=== PATIENT | male | born 2000 | race Caucasian/White ===

== ENCOUNTER 2025-07-11 18:31 | Emergency (ER) | payer OTHER, SELFPAY ==
--- OUTSIDE RECORDS SUMMARY | 1999-08-24 09:51 | XMS_ITS | Encounter Summary ---
Author Organization [facility] Address [address] [place] [address] Care Team Providers Care Motor Adjuster Name Role Phone Unavailable Primary Care Provider Unavailabl e Encounter Details Date Type Department Care Team (Late st Contact Info) Description 08/24/1999 9:51 EDT Hospital Encounter [address] [address] Billy Batista MD [address] [place] [address] Social History Tobacco Use Types Packs/Day Years Used Date Smoking Tobacco: Every Day Cigarettes Smokeless Tobacco: Former Alcohol Use Standard Drinks/Week Comments No 0 (1 standard drink = 0.6 oz pur e alcohol) PHQ-2 Answer Date Recorded PHQ-2 SUBTOTAL 0 10/27/2023 Interpersonal Safety Answer Date Record ed Physically Hurt Never 06/05/2020 Verbally Threaten Not on file 06/05/2020 Sex and Gender Information Value Date Recorded Sex Assigned at Not on file Legal Sex Male 18:23 EST Gender Identity Male 01/01/2024 10:08 EST Sexual Orientation Not on file documented as of this encounter Plan of Treatment Not on file documented as of this encounter Visit Diagnoses Not on filedocumented in this encounter Additional Health Concerns Infection Onset Date Last Indicated Resolved Time R/O COVID-19 10/27/2023 10/27/2023 10/27/2023 8:50 EST documented as of this encounter
--- OUTSIDE RECORDS SUMMARY | 2004-03-13 08:13 | XMS_ITS | Encounter Summary ---
Author Organization [facility] Address [address] [place] [address] Care Team Providers Care Automotive Service Writer Name Role Phone Unavailable Primary Care Provider Unavailabl e Encounter Details Date Type Department Care Team (Late st Contact Info) Description 03/13/2004 8:13 EDT Hospital Encounter [address] [address] [place] Ramires MD [address] [place] [address], [address] [place] [id number] Social History Tobacco Use Types Packs/Day Years [...]
[2025-07-11 18:40] VITALS: BP 133/81; PULSE 58; RESP 16; TEMP 36.9; O2SAT 98; BMI 23.9
--- NOTE | 2025-07-11 18:57 | ED.GENADULT ---
HPI - General Adult General Chief complaint: Skin/Abscess/Foreign Body Stated complaint: ?Infected tattoo Time Seen by Provider: 07/11/25 18:54 Source: patient Mode of arrival: ambulatory Limitations: no limitations History of Present Illness ED Provider: Blair Deleon HPI narrative: 25 yold male presents to the ED for infected tattoo on left wrist. Patient states his cousin was doing a tattoo for the first time on his wrist and she cut to deep. 5 days later there is redness with weeping discharge. patient uptodtae with tetanus. Related Data Previous Rx's ?Medication ?Instructions ?Recorded cephalexin 500 mg capsule 500 mg PO QID 7 days #28 caps 07/11/25 doxycycline hyclate 100 mg capsule 100 mg PO BID 7 days #14 caps 07/11/25 naproxen 500 mg tablet 500 mg PO BID PRN pain #14 tabs 07/11/25 Allergies Allergy/AdvReac Type Severity Reaction Status Date / Time carbamazepine (From Tegretol) AdvReac Seizure Verified 07/11/25 18:41 sertraline (From Zoloft) AdvReac Seizure Verified 07/11/25 18:41 Review of Systems Review of Systems: left wirst tatoo infection Yes all other systems are reviewed and are negative PMFSH Social History Social History Advance Directives: No Advance Directives Information Provided: No Physical Exam ED Vital Signs: Vital Signs - 24 hr 07/11/25 18:40 Temperature 98.5 F Pulse Rate 58 Respiratory Rate 16 Blood Pressure 133/81 Pulse Oximetry 98 Oxygen Delivery Method Room Air BMI result Body Mass Index 23.9 Const General: cooperative, healthy appearing, comfortable, no acute distress, well developed, alert and Physically active Orientation/consciousness: patient oriented x3 HENMT Head: Yes normal to inspection, Yes No palpable skull fracture present, Yes normocephalic, Yes atraumatic and No abrasion Eyes General: appearance normal, both eyes and all related structures Neck Neck: Yes normal visual inspection, Yes full ROM, Yes no lymphadenopathy, Yes no meningeal signs, Yes trachea midline, Yes supple, No anterior neck swelling and No lymphadenopathy Chest Chest palpation & inspection: normal inspection of the chest and normal palpation of entire chest wall Resp Effort & Inspection: normal respiratory effort and able to speak in complete sentences Auscultation: clear to auscultation bilaterally Cardio Jugular venous distension: no JVD Heart sounds: S1 normal heart sound present and S2 normal heart sound present GI Inspection: Yes normal to inspection Palpation (GI): Soft to palpation, not firm, nontender, no guarding and not rigid General: Yes no CVA tenderness Back/Spine/Pelvis Back: no CVA tenderness and No back tenderness Skin Other: tattooo infected General skin exam: no rashes or lesions noted, elasticity normal and turgor normal Neuro General: patient oriented x3, gait normal, tone normal, moves all extremities, Normal light touch and pain sensation, no meningeal signs, no focal motor deficits and CN's II-XI intact bilaterally Extrem General: Yes normal to inspection, Yes full ROM and Yes capillary refill normal Hand/finger images:  1. positive for infected tattoo. there is surrounding erythema, with weeping discharge from openings. rest of extremity is normal. negative for stiffness. motor, neuro, and vascular exam is intact. Medications Administered Discontinued Medications Generic Name Dose Route Start Last Admin Trade Name Freq PRN Reason Stop Dose Admin Cephalexin HCl 500 mg 07/11/25 18:55 07/11/25 19:12 Cephalexin 500 Mg Capsule PO 07/11/25 18:56 500 mg ONCE ONE Administration Doxycycline Monohydrate 100 mg 07/11/25 18:55 07/11/25 19:12 Doxycycline Monohydrate 100 Mg Capsule PO 07/11/25 18:56 100 mg ONCE ONE Administration Medical Decision Making Medical Decision Making [facility] Narrative: RME: 25 yold male presents to the ED left wrist pain with redness and and drainage on area of new tattoo that was done by his cousin who was doing a tattoo for the first time. Patient states causing went to deep. On exam, on inspection of tattoo positive for redness and openings in tattoo that is indurated with yellow weeping. Negative for red streaks going down arm, swelling, bluish black discloration, chest pain, fever, chills, or any other concerning symptoms. Patient given a 1st dose on antibiotics. Patient explained worrisome signs an dinformed to retun to the ED imeidatley. Not suspecting DVT, lymphangitis, osteomyelitis, necrotizign fascitits, or any other life threatening etiology. Differential Diagnosis Differential Diagnoses: The differential diagnosis associated with the presentation includes (Cellulitis, lymphangitis, osteomyelitis) Admission/Observation Consideration of admission/observation: Escalation of care including admission/observation considered Independent Historian Clinical information obtained from an independent historian. History obtained from or confirmed by: Other (patient) Prescription Management I considered prescription management with: Pain Medication and Antibiotic Discharge Plan Discharge Clinical Impression: Cellulitis Patient Disposition: Home, Self-Care Instructions: Cellulitis (ED), Warm Compress or Soak (ED) Additional Instructions: You have a local skin infection on your new tattoo. You will need antibiotics and pain medication. Return to the ED immediately for worsening redness, pus discharge, foul odor, stiffness inability to move wrist, red streaks going down the arm, swelling, chest pain, shortness of breath, or any other concerning symptoms. Prescriptions: New cephalexin 500 mg capsule 500 mg PO QID 7 Days Qty: 28 0RF doxycycline hyclate 100 mg capsule 100 mg PO BID 7 Days Qty: 14 0RF naproxen 500 mg tablet 500 mg PO BID PRN (Reason: pain) Qty: 14 0RF Stand Alone Forms: Work/School Release Interventions: ED Discharge Assessment Last Done: 07/11/25 19:30 Discharge Date/Time: 07/11/25 19:36 Print Language: Greek
[2025-07-11 19:30] VITALS: BP 133/81; PULSE 58; RESP 16; TEMP 36.9; O2SAT 98
--- OUTSIDE RECORDS SUMMARY | 2025-07-11 19:37 | XMS_ITS | Clinical Summary ---
Author Organization [facility] Address [address] [place] [address] Care Team Providers Care Terminal Make Up Operator Name Role Phone Wilfrido Mueller MD Primary Care Provi ton Allergies Active Allergy Reactions Criticality Noted Date Comments Carbamazepine Other (See Comments) High 04/20/2022 Seizure activity Sertraline Other (See Comments) High 04/20/2022 seizure Medications buprenorphine-n aloxone 8-[address] under the tongue daily. Active BABY ASPIRIN ORAL Take 81 mg by mouth daily. Active buprenorphine HCL [address] 1 tablet under the tongue 4 (four) times daily. Active guanFACINE 1 mg Oral ER tablet Take 1 tablet by mouth at bedtime. 06/27/2024 Active lurasidone 60 mg Oral tablet Take 1 tablet by mouth daily. 06/27/2024 Active methylphenidate HCl 18 MG Oral ER tablet Take 1 tablet by mouth every morning. 06/26/2024 Active magnesium oxide 400 mg Oral tablet Take 0.5 tablets by mouth at bedtime. 06/27/2024 Active Active Problems Problem Noted Date Diagnosed Date Lung nodule 07/07/2025 Migraine without aura, not i ntractable, without status migrainosus 07/13/2024 Nausea & vomiting 02/02/2024 Upper respiratory tract infection, unspecified t ype 09/24/2023 Encounters Date Type Department Care Team Description 06/03/2025 7:11 PM EDT - 06/03/2025 7:34 PM EDT Emergency [facility] Emergency Department [address] [place] [address] Hordeolum externum of right upper eyelid (Primary Dx) Discharge Disposition: Home or Self Care 04/26/2025 9:28 AM EDT - 04/26/2025 10:08 AM EDT Emergency [facility] Emergency Department [address] [place] [address] Thomas Delgado MD Cellulitis and abscess of upper extremity (Primary Dx) Discharge Disposition: ED ONLY - Home 04/26/2025 Travel from Last 3 Months Immunizations Immunization Administration Dates Next Due PFIZER SARS-COV-2 VACC (STACY CAP) (ADULT/ADOL) 0 06/13/2021 Family History Medical History Relation Comments Heart disease Brother Diabetes Father Heart disease Father Dementia Maternal Grandfather Arthritis Maternal Grandmother Arthritis Mother Kidney disease Mother Liver disease Mother Thyroid disease Mother Aortic aneurysm Paternal Grandfather Breast cancer Paternal Grandmother Relation Status Comments Brother Father Alive Maternal Grandfather Alive Maternal Grandmother Alive Mother Alive Paternal Grandfather (Age 78) Paternal Grandmother Alive Social History Tobacco Use Types Packs/Day Years Used Date Smoking Tobacco: Every Day Cigarettes Alcohol Use Standard Drinks/Week Comments Yes 0 (1 standard drink = 0.6 oz pur e alcohol) rarely PHQ-2 Answer Date Recorded PHQ-2 Score 1 09/24/2023 Sex and Gender Information Value Date Recorded Sex Assigned at Not on file Legal Sex Male 11:35 AM EDT Gender Identity Not on file Sexual Orientation Not on file Last Filed Vital Signs Vital Sign Reading Time Taken Comments Blood Pressure 150/84 06/03/2025 7:11 PM EDT Pulse 64 06/03/2025 7:11 PM EDT Temperature 36.5 C (97.7 F) 06/03/2025 7:11 PM EDT Respiratory Rate 14 06/03/2025 7:11 PM EDT Oxygen Saturation 100% 06/03/2025 7:11 PM EDT Inhaled Oxygen Concentration - - Weight 68 kg (150 lb) 06/03/2025 7:11 PM EDT Height 172.7 cm (5' 8 ) 06/03/2025 7:11 PM EDT Body Mass Index 22.81 06/03/2025 7:11 PM EDT Plan of Treatment Health Maintenance Due Date Last Done Comments Hepatitis B Vaccines (1 of 3 - 19+ 3-dose series) 2017 Pneumococcal 0-49 (1 of 2 - PCV) 2017 DTap / Tdap / Td Vaccines (1 - Tdap) 2019 Health Care Proxy Review 2019 Depression Screening (Once per Calendar Year) 2024 09/24/2023, 09/24/2023, 09/24/2023, Additional history exists COVID-19 Vaccine (2 - 2024- season) 2025 06/13/2021 INFLUENZA VACCINE (#1) 2025 Diabetes Screening 11/16/2025 11/16/2024, 0 11/16/2024, 02/02/2024, Additional history exists Zoster Vaccines (1 of 2) 2048 HIB Vaccines Aged Out No longer eligi ble based on patient's age to complete this topic HPV Vaccine Aged Out No longer eligi ble based on patient's age to complete this topic Hepatitis A Vaccine Aged Out No longe r eligible based on patient's age to complete this topic IPV Vaccines Aged Out No longer eligi ble based on patient's age to complete this topic Meningococcal ACWY Vaccines Aged Out No longer eligible based on patient's age to complete this topic Meningococcal B Vaccines Aged Out No longer eligible based on patient's age to complete this topic RRH RSV Vaccine Infants Aged Out No l onger eligible based on patient's age to complete this topic Rotavirus Vaccines Aged Out No longer eligible based on patient's age to complete this topic Goals Goal Patient Goal Type Associated Problems Recent Progress Patient-Stated? Author Inpatient Post-Discharge Follow Up General No Faviola Cain LPN Note: If you are hospitalized in the future, please complete a follow-up visit with your PCP within 7 days of discharge from the hospital. Procedures Procedure Name Priority Date/Time Associated Diagnosis Comments [facility] PROC INCISION AND DRAINAGE Routine 04/26/2025 10:02 AM EDT HEMOGLOBIN A1C Routine 11/16/2024 1:16 PM EST Other [facility] (current) drug therapy from Last 3 Months or Most Recently Relevant to Health Maintenance Results * I and D (04/26/2025 10:02 AM EDT) Narrative Thomas Delgado MD - 04/26/2025 10:02 AM EDT Thomas Delgado MD 04/26/2025 10:04 AM I and D Date/Time: 04/26/2025 10:02 AM Performed by: Thomas Delgado MD Authorized by: Thomas Delgado MD Consent obtained? Verbal consent obtained Consent given by: patient Risks and benefits: risks, benefits and alternatives were discussed Time Out: Immediately prior to the procedure a time out was performedType: abscess Body area: upper extremity Location details: left arm Local Anesthetic: lidocaine 2% with epinephrine Anesthetic total: 4 mL Scalpel size: 15 Incision type: single straight Complexity: simple Drainage: purulent and serosanguinous Drainage amount: copious Wound treatment: wound left open Packing material: 1/2 in gauze Patient tolerance: patient tolerated the procedure well with no immediate complications Thomas Delgado MD PROCEDURE/MINOR SURGI MATEUSZ PERFORMABLES Final Result * Hemoglobin A1C (11/16/2024 1:16 PM EST) EAVERAGE GLUCOSE 100 80 - 137 mg/dL LABS HEMOGLOBIN A1C 5.1 4.2 - 6.3 % LABS Comment: Per ADA 2018 Guidelines, HbA1c values should be interpreted as follows: Normal: less than 5.7% Prediabetes: 5.7% - 6.4% Diabetes: greater than 6.4% Samples containing >7% HbF may yield lower than expected HbA1c results. Additional testing not affected by HbF can be requested if clinically indicated. Contact [phone] for more information. Blood 11/16/2024 1:16 PM EST 11/16/2024 1:16 PM EST Narrative LABS - 11/16/2024 1:16 PM EST Release to patient->Immediate Lab Collect I have provided this patient pre-test counseling for HIV testing and they have consented to a screening test to be drawn today:->Yes Lab Collect us Vielka Padilla DO LAB BLOOD ORDERABLES Final Res ult [facility] [address] [place] [address] from Last 3 Months or Most Recently Relevant to Health Maintenance Insurance [employer] Advance Directives For more information, please contact: [phone] * Full Code (Latest Code Status on File) Date Activated Date Inactivated Comments 02/01/2024 7:20 PM Care Teams Terminal Make Up Operator Relationship Specialty Start Date End Date Wilfrido Mueller MD [address] [facility] [address] [place] [address] PCP - General Internal Medicine 06/03/25
--- OUTSIDE RECORDS SUMMARY | 2025-07-11 19:37 | XMS_ITS | Encounter Summary ---
Author Organization [facility] Address [address] [place] [address] Care Team Providers Care Pyridine Operator Name Role Phone None, Provider IN CLASSROOM TUTOR Primary Care Provider Vahid Baird MD Primary Care Provider [phone] [facility] Primary Care Provider Reason for Visit * Reason Onset Date Comments Follow-up 01/07/2024 Encounter Details Date Type Department Care Team (Late st Contact Info) Description 01/07/2024 Telephone [facility] Cardiology [address] [place] [address] Laine Mcdonald NP [address] [address] Follow-up Social History Tobacco Use Types Packs/Day Years [...] on file documented as of this encounter Functional Status * Are you deaf or do you have serious difficulty hearing? Answer Date of Assessment Author No 11/20/2023 5:44 Jj Holden, RN * Are you blind or do you have serious difficulty seeing, even when wearing glasses? Answer Date of Assessment Author No 09/28/2017 16:44 Chino Mora * Do you have serious difficulty walking or climbing stairs? (5 years old or older) Answer Date of Assessment Author No 09/28/2017 16:44 Chino Mora men * Do you have difficulty dressing or bathing? (5 years old or older) Answer Date of Assessment Author No 09/28/2017 16:44 Chino Mora * Because of a physical, mental, or emotional condition, do you have difficulty doing errands alone such as visiting a doctor's office or shopping? (15 years old or older) Answer Date of Assessment Author No 09/28/2017 16:44 Chino Mora documented as of this encounter Mental Status * Because of a physical, mental, or emotional condition, do you have serious difficulty concentrating, remembering, or making decisions? (5 years old or older) Answer Entry Date Author No 09/28/2017 16:44 Chino Mora documented in this encounter Miscellaneous Notes * Telephone Encounter - Carmel Sharp LPN - 02/07/2024 0923 EDT Appeal still pending. * Telephone Encounter - Carmel Sharp LPN - 02/03/2024 1449 EDT Appeal still pending * Telephone Encounter - Carmel Sharp LPN - 01/27/2024 1437 EDT Appeal still pending * Telephone Encounter - Carmel Sharp LPN - 01/15/2024 1451 EDT Appeal faxed * Telephone Encounter - Carmel Sharp LPN - 01/15/2024 1054 EDT Auth denied again, they would like patient to have ETT. Is this something you would like to order or would you like me to appeal? * Telephone Encounter - Carmel Sharp LPN - 01/15/2024 0918 EDT Auth still pending * Telephone Encounter - Carmel Sharp LPN - 01/13/2024 1518 EDT New auth submitted * Telephone Encounter - Laine Mcdonald NP - 01/07/2024 1510 EST Boone called back at 15:00. He states he has a very difficult time performing exercise given significant dyspnea with activity like walking. He becomes diaphoretic and anxious with the changes in his breathing - he does not feel confident that he can perform an ETT. He was updated on the results of his holter monitor showing an elevation in his HR in morning hours(02:05). He states he has not used drugs recreationally outside of cannabis in many months. Also stated he felt acutely unwell during his holter monitor. I have updated him on consult with Dr. Patel taking place on March 18, 2024 at 0900. Updated that I will need to see outcome of discussion with his insurance for ischemic work up. Laine Mcdonald NP * Telephone Encounter - Laine Mcdonald NP - 01/07/2024 1442 EST Called home number at 14:40 and asked to speak with Boone. He is not presently at home, message for him to call me back were left with his mother. Pt has been declined CTA thus far. I would like to speak with him regarding his symptoms and whether or not he feels he would be able to walk on a treadmill as an alternative diagnostic study. I will ask our MELT SUPERINTENDANT Carmel for her assistance appealing to the insurance company for this to be approved. Laine Mcdonald IN CLASSROOM TUTOR documented in this encounter Plan of Treatment Not on file documented as of this encounter Visit Diagnoses Not on filedocumented in this encounter Care Teams Pyridine Operator Relationship Specialty Start Date End Date None, Provider, IN CLASSROOM TUTOR PCP - General 09/28/17 02/11/24 Vahid Velásquez MD [address] [place] [id number] PCP - General Clinical Cardiac Electrophysiology 02/12/24 02/23/[address] [address] PCP - General Family Medicine - Primary Care 02/24/24 documented as of this encounter
--- OUTSIDE RECORDS SUMMARY | 2025-07-11 19:37 | XMS_ITS | Clinical Summary ---
Author Organization [facility] Address [address] [place] [address] Care Team Providers Care Automatic Lathe Tender Name Role Phone [facility] Primary Care Provider Allergies Active Allergy Reactions Criticality Noted Date Comments Carbamazepine Hives 07/02/2012 Sertraline 09/28/2017 Pt states he had seizures. Medications ondansetron (ZOFRAN-ODT) 4 mg disintegrating tablet Take 1 Tablet by mouth every 6 hours as needed for Nausea. 10 Tablet 11/20/19 24 Active buprenorphine HCL (SUBUTEX) [address] 4 Tablets under the tongue daily. Active metoprolol TARtrate (LOPRESSOR) 25 mg tablet Take 1 Tablet by mouth Once for 1 dose. Take 3 hours prior to coronary CT. 1 Tablet 01/01/20 24 Active Additional Information Patient not taking.Reported on 02/24/2024 Active Problems Problem Noted Date Diagnosed Date History of echocardiogram 06/05/2024 Overview (06/05/2024): Echocardiogram: April 07, 2024 Left Ventricle: The left ventricular cavity was normal in size. Left ventricular systolic function was normal with an ejection fraction of 60-65%. Left ventricular diastolic parameters were normal. Left ventricular wall thickness was normal. Left ventricular wall motion was normal; there were no regional wall motion abnormalities. Right Ventricle: The right ventricular cavity was normal in size. Right ventricular systolic function was normal. Normal valvular function. History of exercise stress test 06/05/2024 Overview (06/05/2024): ETT: February 24, 2024 - Stress ECG: Negative study with maximal exercise. Stress data: Target heart rate achieved. Maximal heart rate during stress was 182 (93 % of MPHR). There was a normal HR response to exercise. There was a normal BP response to exercise. Exercise capacity was average for age and gender. Patient experienced no chest pain. Negative maximal ETT Average exercise tolerance Family history of first degr ee relative with bicuspid aortic valve 02/24/2024 Family history of premature CAD 01/01/2024 Overview (06/05/2024): Father NH before age 55. Grandfather and uncle with NH earlier. Psychogenic nonepileptic seizure 09/29/2017 Seizure-like activity ([facility]) 09/28/2017 Colicky RLQ abdominal pain 02/12/2014 Rectal bleeding 02/11/2014 Mental disorder Surgical History Surgery Date Site/Laterality Comments HAND SURGERY Right Medical History Medical History Date Comments Seizures ([facility]) was told in 2 013 that there was no epilepsy (off of meds since he was 3) Colicky RLQ abdominal pain 02/12/2014 Depression Family history of early CAD Current smoker Sinus bradycardia Family History Medical History Relation Comments Allergies Brother 1 Congenital heart defects Brother 2 bicuspi d aortic valve, history of coarct Bradycardia Father Diabetes Father type 1 Heartburn/Reflux Father High Cholesterol Maternal Grandfather Thyroid Disease Maternal Grandfather High Cholesterol Maternal Grandmother Allergies Mother environmental Celiac Disease Mother Heartburn/Reflux Mother Hypertension Mother Ulcers Mother High Cholesterol Paternal Grandfather High Cholesterol Paternal Grandmother Relation Status Comments Brother 1 Brother 2 Father Alive Maternal Grandfather Maternal Grandmother Mother Paternal Grandfather Paternal Grandmother Social History Tobacco Use Types Packs/Day Years Used Date Smoking Tobacco: Every Day Cigarettes Smokeless Tobacco: Former Tobacco Cessation:Ready to Q uit: Yes; Counseling Given: Not Answered Alcohol Use Standard Drinks/Week Comments No 0 [...] 10:08 EST Sexual Orientation Not on file Obstetrics History Last Filed Vital Signs Vital Sign Reading Time Taken Comments Blood Pressure 100/42 04/07/2024 1303 EDT Pulse 47 03/18/2024 0857 EDT Temperature 36.2 C (97.1 F) 03/18/2024 0857 EDT Respiratory Rate 18 03/18/2024 0857 EDT Oxygen Saturation 96% 03/18/2024 0857 EDT Inhaled Oxygen Concentration - - Weight 71.7 kg (158 lb) 04/07/2024 1303 EDT Height 172.7 cm (5' 8 ) 04/07/2024 1303 EDT Body Mass Index 24.02 04/07/2024 1303 EDT Plan of Treatment Health Maintenance Due Date Last Done Comments Hepatitis C Screen 1998 Hepatitis B Vaccine (1 of 3 - 19+ 3-dose series) 04/23 Pneumococcal Immunization (1 of 2 - PCV) 2017 COVID-19 Vaccine ( - season) 2024 Insurance [employer] Advance Directives For more information, please contact: [phone] * Full Code (Latest Code Status on File) Date Activated Date Inactivated Comments 09/28/2017 12:33 09/29/2017 15:03 Question Answer Comments Reason for decision includes: Full code consistent with overall plan of care Who participated in the discussion? Patient * Full Code Date Activated Date Inactivated Comments 02/11/2014 2:25 02/13/2014 18:00 Care Teams Automatic Lathe Tender Relationship Specialty Start [place] [address] PCP - General Family Medicine - Primary Care 02/24/24
--- OUTSIDE RECORDS SUMMARY | 2025-07-11 19:37 | XMS_ITS | Encounter Summary ---
Author Organization [facility] Address [address] [place] [address] Care Team Providers Care Captain/Airline Pilot Name Role Phone None, Provider SALES ROUTE DRIVER Primary Care Provider Vahid Baird MD Primary Care Provider [phone] [facility] Primary Care Provider Reason for Visit * Reason Onset Date Comments Other 02/10/2024 Encounter Details Date Type Department Care Team (Late st Contact Info) Description 02/10/2024 Telephone [facility] Cardiology [address] [place] [address] Laine Mcdonald NP [address] [phone] Other Social History Tobacco Use Types Packs/Day Years [...] of Assessment Author No 11/20/2023 5:44 Jj Holden RN * Are you blind or do you have serious difficulty seeing, even when wearing glasses? Answer Date of Assessment Author No 09/28/2017 16:44 Chino Mora * Do you have serious difficulty walking or climbing stairs? (5 years old or older) Answer Date of Assessment Author No 09/28/2017 16:44 Chino Mora * Do you have difficulty dressing or [...] encounter Miscellaneous Notes * Telephone Encounter - Faviola Carvalho - 02/11/2024 0949 EDT Called and left patient another message to call the office back * Telephone Encounter - Faviola Carvalho - 02/10/2024 1458 EDT Called patient left a message for him to call the office. Sancho Jang reschedule patient out abouta week after his testing. Schedule around February 23 documented in this encounter Plan of Treatment Not on file documented as of this encounter Visit Diagnoses Not on filedocumented in this encounter Care Teams Captain/Airline Pilot Relationship Specialty Start Date End Date None, Provider, SALES ROUTE DRIVER PCP - General 09/28/17 02/11/24 Vahid Velásquez MD [address] [place] [phone] PCP - General Clinical Cardiac Electrophysiology 02/12/24 02/23/24 [place] [address] PCP - General Family Medicine - Primary Care 02/24/24 documented as of this encounter
--- OUTSIDE RECORDS SUMMARY | 2025-07-11 19:37 | XMS_ITS | Encounter Summary ---
Author Organization [facility] Address [address] [place] [address] Care Team Providers Care Marketing Production Specialist Name Role Phone [facility] Primary Care Provider Encounter Details Date Type Department Care Team (Late st Contact Info) Description 06/09/2024 Telephone [facility] Cardiology [address] [place] [address] Laine Mcdonald, MARYANNE [address] [facility] [address] [place] [phone] Social History Tobacco Use Types Packs/Day Years [...] Date of Assessment Author No 11/20/2023 5:44 EST Jj Elizabeth, RN * Are you blind or do [...] 16:44 Chino Mora documented in this encounter Plan of Treatment Not on file documented as of this encounter Visit Diagnoses Not on filedocumented in this encounter Care Teams Marketing Production Specialist Relationship Specialty Start Date End Date [address] [address] PCP - General Family Medicine - Primary Care 02/24/24 documented as of this encounter
== END 2025-07-11 19:36 | disposition home or self-care (01) ==
LOC: HO.ED 19:34
PROVIDERS: Emergency Provider Student in an Organized Health Care Education/Training Program
DX: L03.114 Cellulitis of left upper limb (principal)
CPT/HCPCS: 99282; 99283